=== PATIENT | female | born 1970 | race Caucasian/White ===

== ENCOUNTER 2022-11-20 12:48 | Outpatient (NON) | payer BC, SELFPAY | END 2022-11-20 12:49 | disposition home or self-care (01) | LOC: ANHLAB 11-21 12:48 | PROVIDERS: PCP Internal Medicine; Visit Provider Nurse Practitioner | DX: L82.1 Other seborrheic keratosis (principal) | CPT/HCPCS: 88305 ==

== ENCOUNTER 2023-01-22 08:00 | Outpatient (NON) | payer BC, SELFPAY | END 2023-01-22 08:01 | disposition home or self-care (01) | LOC: ANHLAB 01-23 10:51 | PROVIDERS: PCP Internal Medicine; Visit Provider Nurse Practitioner | DX: R22.2 Localized swelling, mass and lump, trunk (principal) | CPT/HCPCS: 88304 ==